=== PATIENT | male | born 1965 | race African-American/Black ===

== ENCOUNTER 2017-02-17 11:39 | Emergency (ER) | payer MEDICARE, OTHER ==
[~2017-02-17] VITALS: Ht 175.3 cm; Wt 104.3 kg
[~2017-02-17 11:39] MED LIST: DEPER5 PO; LORA1TAB PO; QUET400T PO
[2017-02-17] MEDS ORDERED: MAGNESIUM/ALUMINUM HYDROXIDE/SIMETHICONE 30ML UDC PO STA (12:56)
[2017-02-17] MEDS ORDERED: FAMOTIDINE 20MG/2ML VIAL IV STA (12:56)
[2017-02-17] MEDS ORDERED: ONDANSETRON HCL 4MG/2ML VIAL IV STA (12:56)
[2017-02-17] MEDS ORDERED: MORPHINE SULFATE 4 MG/ML CPJ (NOT FOR IM USE) IV STA (12:56)
[2017-02-17] MEDS ORDERED: SODIUM CHLORIDE 0.9% 1,000 ML IV ONE (12:56)
[2017-02-17 14:21] LABS: HEMATOCRIT. 48.4 % (42.0-52.0); HEMOGLOBIN. 16.3 g/dL (14.0-18.0); MEAN CORPUSCULAR HEMOGLOBIN 31.4 pg (28.0-32.0); MEAN CORPUSCULAR VOLUME 92.9 fL (80.0-94.0); MEAN PLATELET VOLUME 9.7 fl (7.4-10.4); PLATELET 145 x1000/uL (130-400); RED BLOOD CELL COUNT 5.21 mill/uL (4.7-6.1)
[2017-02-17 14:29] LABS: D-DIMER 0.37 mg/L FEU (<0.50); INR 1.1; PROTHROMBIN TIME 11.4 sec (9.4-11.6)
[2017-02-17 14:36] LABS: CARBON DIOXIDE 33 mEq/L (21-32); CHLORIDE 101 mEq/L (98-107); ETHANOL BLOOD < 10 mg/dL; TROPONIN I < 0.02 ng/mL (0.00-0.04)
[2017-02-17 14:43] LABS: PLATELET ESTIMATE NORMAL
[2017-02-17 15:52] VITALS: BP 146/81
== END 2017-02-17 15:57 | disposition home or self-care (01) ==
LOC: ER 13:51
DX: K29.70 Gastritis, unspecified, without bleeding (principal); R07.89 Other chest pain; F17.200 Nicotine dependence, unspecified, uncomplicated; Z85.46 Personal history of malignant neoplasm of prostate
CPT/HCPCS: 36415; 71010; 76700; 80053; 82962; 83690; 83880; 84484; 85025; 85379; 85610; 93005; 96361; 96374; 96375; 99285; G0482; J2270; J2405; J3490; J7030; Z7610

== ENCOUNTER 2017-02-19 00:59 | Observation (INO) | payer MEDICAID, MEDICARE ==
[~2017-02-19] VITALS: Ht 175.3 cm; Wt 103.9 kg
[2017-02-19] MEDS ORDERED: SODIUM CHLORIDE 0.9% 1,000 ML IV ONE (01:13)
[2017-02-19] MEDS ORDERED: MECLIZINE 25MG TABLET PO ONE (01:15)
[2017-02-19 02:23] LABS: HEMATOCRIT. 42.5 % (42.0-52.0); HEMOGLOBIN. 14.1 g/dL (14.0-18.0); MEAN CORPUSCULAR HEMOGLOBIN 31.1 pg (28.0-32.0); MEAN CORPUSCULAR VOLUME 93.4 fL (80.0-94.0); MEAN PLATELET VOLUME 9.8 fl (7.4-10.4); PLATELET 136 x1000/uL (130-400); RED BLOOD CELL COUNT 4.55 mill/uL (4.7-6.1); RED CELL DISTRIBUTION WIDTH 13.9 % (11.6-14.6)
[2017-02-19 02:28] LABS: INR 1.1; PROTHROMBIN TIME 11.5 sec (9.4-11.6)
[2017-02-19 02:38] LABS: CARBON DIOXIDE 26 mEq/L (21-32); CHLORIDE 102 mEq/L (98-107); ETHANOL BLOOD < 10 mg/dL; TROPONIN I 0.03 ng/mL (0.00-0.04)
[2017-02-19 07:20] LABS: PLATELET ESTIMATE NORMAL
[2017-02-19 09:45] VITALS: BP 132/91
[2017-02-19 09:53] VITALS: BP 132/91
[2017-02-19] MEDS ORDERED: DIVAL250 PO (10:11)
[2017-02-19] MEDS ORDERED: ENOXAPARIN 40MG/0.4ML SYR SUBCUT SCH (10:45)
[2017-02-19] MEDS ORDERED: DOCUSATE SODIUM 100MG CAPSULE PO PRN (10:45)
[2017-02-19] MEDS ORDERED: LORAZEPAM 2MG/ML CPJ IV PRN (10:45)
[2017-02-19 12:00] VITALS: BP 127/75
[2017-02-19] MEDS ORDERED: MVI, ADULT NO.1 10 ML, FOLIC ACID 1 MG, THIAMINE HCL 100 MG in SODIUM CHLORIDE 0.9% 1,0... IV ONE ×4 (13:00)
[2017-02-19] MEDS: DIVALPROEX SODIUM 500MG ER TABLET PO SCH ×2 (13:11→22:09)
[2017-02-19] MEDS: FAMOTIDINE 20MG TABLET PO SCH ×2 (13:11→22:10)
[2017-02-19] MEDS: ENOXAPARIN 30MG/0.3ML SYR SUBCUT SCH ×2 (13:11→22:10)
[2017-02-19] MEDS: LORAZEPAM 1MG TABLET PO SCH ×2 (13:12→17:46)
[2017-02-19] MEDS: PIPERACILLIN/TAZ 3.375G PREMIX 50 ML IV SCH ×2 (14:56→22:10)
[2017-02-19] MEDS: SODIUM CHLORIDE 0.9% INJ 3ML FLUSH IVF SCH ×2 (14:56→22:11)
[2017-02-19 16:00] VITALS: BP_SYST 110; BP_SYST 113; BP_SYST 116; BP_DIAS 68; BP_DIAS 71; BP_DIAS 78
[2017-02-19] MEDS ORDERED: SODIUM CHLORIDE 0.9% 1,000 ML IV SCH (16:00)
[2017-02-19 20:00] VITALS: BP 124/78
[2017-02-20] VITALS: BP 124/78
[2017-02-20 04:00] VITALS: BP 108/72
[2017-02-20] MEDS: PIPERACILLIN/TAZ 3.375G PREMIX 50 ML IV SCH (05:21)
[2017-02-20] MEDS: SODIUM CHLORIDE 0.9% INJ 3ML FLUSH IVF SCH (05:21)
[2017-02-20 06:39] LABS: BASOPHILS % 0.3 % (0.0-2.0); HEMATOCRIT. 39.3 % (42.0-52.0); LYMPHOCYTES % 14.3 % (20.0-50.0); MEAN CORPUSCULAR HEMOGLOBIN 31.1 pg (28.0-32.0); MEAN CORPUSCULAR VOLUME 93.7 fL (80.0-94.0); MEAN PLATELET VOLUME 10.1 fl (7.4-10.4); MONOCYTES % 13.9 % (2.0-8.0); NEUTROPHILS % 70.5 % (40.0-76.0); PLATELET 140 x1000/uL (130-400); RED CELL DISTRIBUTION WIDTH 13.7 % (11.6-14.6)
[2017-02-20] MEDS: FAMOTIDINE 20MG TABLET PO SCH (07:53)
[2017-02-20] MEDS: DIVALPROEX SODIUM 500MG ER TABLET PO SCH (07:54)
[2017-02-20] MEDS: LORAZEPAM 1MG TABLET PO SCH (07:54)
[2017-02-20] MEDS: ENOXAPARIN 30MG/0.3ML SYR SUBCUT SCH (07:56)
[2017-02-20 08:00] VITALS: BP 98/51
[2017-02-20] MEDS ORDERED: DIVALPROEX SODIUM 250MG ER TABLET PO SCH (09:00)
[2017-02-20 11:47] VITALS: BP 129/62
[2017-02-20 12:00] VITALS: BP 111/61
[2017-02-20] MEDS ORDERED: PIPERACILLIN/TAZ 3.375G PREMIX 50 ML IV SCH (18:00)
== END 2017-02-20 15:05 | disposition home or self-care (01) ==
LOC: ER 00:59 → 7WST 01:31 → INTOOBSV 01:31
PROVIDERS: ADMIT Internal Medicine; ATTEND Internal Medicine
DX: R55 Syncope and collapse (principal); F20.9 Schizophrenia, unspecified; F32.9 Major depressive disorder, single episode, unspecified; E86.0 Dehydration; D72.829 Elevated white blood cell count, unspecified
CPT/HCPCS: 36415; 70450; 70551; 71010; 80053; 82962; 83690; 83880; 84484; 85025; 85610; 93005; 95819; 96361; 96365; 96366; 96368; 96372; 96375; 97162; 99285; G0378; G0482; J1650; J2543; J3411; J3490; J7030; 96360; J8597

== ENCOUNTER 2019-04-28 13:55 | Emergency (ER) | payer MEDICAID, MEDICARE ==
[~2019-04-28] VITALS: Ht 172.7 cm; Wt 100.0 kg
[~2019-04-28 13:55] MED LIST changes: +DIVAL250 PO
[2019-04-28] MEDS ORDERED: KETOROLAC 60MG/2ML VIAL IM ONE (15:45)
[2019-04-28 16:04] VITALS: BP 140/89
[2019-04-28 16:16] LABS: BASOPHILS % 1.1 % (0.0-2.0); EOSINOPHILS % 4.2 % (0.0-5.0); HEMATOCRIT. 49.5 % (42.0-52.0); HEMOGLOBIN. 16.7 g/dL (14.0-18.0); LYMPHOCYTES % 27.2 % (20.0-50.0); MEAN CORPUSCULAR HEMOGLOBIN 31.3 pg (28.0-32.0); MEAN CORPUSCULAR VOLUME 92.7 fL (80.0-94.0); MEAN PLATELET VOLUME 9.8 fl (7.4-10.4); MONOCYTES % 9.7 % (2.0-8.0); NEUTROPHILS % 57.8 % (40.0-76.0); PLATELET 193 x1000/uL (130-400); RED BLOOD CELL COUNT 5.34 mill/uL (4.7-6.1); RED CELL DISTRIBUTION WIDTH 14.1 % (11.6-14.6)
[2019-04-28 16:16] LABS: CLARITY URINE CLEAR (CLEAR); COLOR URINE YELLOW (YELLOW); KETONES URINE 1+ (NEGATIVE); LEUKOCYTE ESTERASE URINE NEGATIVE (NEGATIVE); NITRITE URINE NEGATIVE (NEGATIVE); OCCULT BLOOD URINE NEGATIVE (NEGATIVE); PH URINE 5.5 (4.5-8.0); PROTEIN URINE NEGATIVE (NEGATIVE); SPECIFIC GRAVITY URINE 1.024 (1.005-1.030); UROBILINOGEN URINE 0.2 E.U./dL (0.2-1.0)
[2019-04-28 16:20] LABS: CHLORIDE 109 mEq/L (98-107)
[2019-04-28 17:47] LABS: CHLORIDE 106 mEq/L (98-107)
== END 2019-04-28 19:05 | disposition home or self-care (01) ==
LOC: ER 13:55
DX: M54.5 Low back pain (principal)
CPT/HCPCS: 36415; 72131; 80053; 81003; 85025; 96372; 99284; J1885

== ENCOUNTER 2021-09-15 19:54 | Emergency (ER) | payer MEDICARE ==
[~2021-09-15] VITALS: Ht 190.5 cm; Wt 127.0 kg
[2021-09-15] MEDS ORDERED: NITROGLYCERIN 0.4MG TABLET SL SL PRN ×2 (20:30→23:00)
[2021-09-15] MEDS ORDERED: ASPIRIN 81MG TABLET PO ONE (20:30)
[2021-09-15 21:31] LABS: HEMATOCRIT. 48.8 % (42.0-52.0); HEMOGLOBIN. 15.5 g/dL (14.0-18.0); MEAN CORPUSCULAR HEMOGLOBIN 28.5 pg (28.0-32.0); MEAN CORPUSCULAR VOLUME 90.1 fL (80.0-94.0); MEAN PLATELET VOLUME 10.2 fl (7.4-10.4); PLATELET 142 x1000/uL (130-400); RED BLOOD CELL COUNT 5.41 mill/uL (4.7-6.1); RED CELL DISTRIBUTION WIDTH 18.8 % (11.6-14.6)
[2021-09-15 21:36] LABS: CHLORIDE 102 mEq/L (98-107)
[2021-09-15] MEDS ORDERED: SODIUM CHLORIDE 0.9% 1000ML BAG (SEPSIS BOLUS) IV ONE (21:45)
[2021-09-15] MEDS ORDERED: CEFTRIAXONE 1 G PREMIX 50 ML IV ONE (21:45)
[2021-09-15] MEDS ORDERED: AZITHROMYCIN 500MG/250ML 250 ML IV ONE (21:45)
[2021-09-15 21:51] LABS: PLATELET ESTIMATE NORMAL
[2021-09-15] MEDS ORDERED: CEFTRIAXONE 1,000 MG in DEXTROSE 5% WATER 50 ML IV SCH (22:00)
[2021-09-15] MEDS ORDERED: ASPIRIN 81MG TABLET PO NR (22:27)
[2021-09-15] MEDS ORDERED: ONDANSETRON HCL 4MG/2ML INJ IV PRN (23:00)
[2021-09-15] MEDS ORDERED: DOCUSATE SODIUM 100MG CAPSULE PO PRN (23:00)
[2021-09-15] MEDS ORDERED: GUAIFENESIN 200MG/10ML SUGAR FREE UDC PO PRN (23:00)
[2021-09-15] MEDS ORDERED: ENOXAPARIN 40MG/0.4ML SYR SUBCUT SCH (23:00)
[2021-09-15] MEDS ORDERED: ACETAMINOPHEN 325MG TABLET PO PRN ×2 (23:00)
[2021-09-15] MEDS ORDERED: KETOROLAC 15MG/ML VIAL IV PRN (23:00)
[2021-09-15] MEDS ORDERED: AMLODIPINE 10MG TABLET PO SCH (23:00)
[2021-09-15] MEDS ORDERED: ZOLPIDEM TARTRATE 5MG TABLET PO PRN (23:00)
[2021-09-15] MEDS ORDERED: IPRATROPIUM/ALBUTEROL 0.5-3(2.5)MG/3ML NEB NEB PRN (23:00)
[2021-09-15] MEDS ORDERED: CLONIDINE 0.1MG TABLET PO PRN (23:00)
[2021-09-15] MEDS ORDERED: LORAZEPAM 0.5MG TABLET PO PRN (23:00)
[2021-09-15] MEDS ORDERED: MAGNESIUM/ALUMINUM HYDROXIDE/SIMETHICONE 30ML UDC PO PRN (23:00)
[2021-09-15] MEDS ORDERED: HALOPERIDOL LACTATE 5MG/ML VIAL IM PRN (23:08)
[2021-09-15 23:53] LABS: ETHANOL BLOOD < 10 mg/dL
[2021-09-15 23:56] LABS: LDL CHOLESTEROL 166 mg/dL (5-100); TOTAL IRON BINDING CAPACITY 455 ug/dL (250-450)
[2021-09-15 23:58] LABS: HDL CHOLESTEROL 48 mg/dL (40-59); T4 FREE 0.97 ng/dL (0.76-1.46)
[2021-09-16] MEDS ORDERED: IOHEXOL-350 100 ML BOTTLE ONE (00:31)
[2021-09-16 01:19] LABS: CLARITY URINE CLEAR (CLEAR); COLOR URINE YELLOW (YELLOW); KETONES URINE 1+ (NEGATIVE); LEUKOCYTE ESTERASE URINE NEGATIVE (NEGATIVE); NITRITE URINE NEGATIVE (NEGATIVE); OCCULT BLOOD URINE TRACE (NEGATIVE); PROTEIN URINE NEGATIVE (NEGATIVE); SPECIFIC GRAVITY URINE 1.054 (1.005-1.030); UROBILINOGEN URINE 0.2 E.U./dL (0.2-1.0)
[2021-09-16 01:31] LABS: *AMPHETAMINES SCREEN URINE NEGATIVE (NEGATIVE); *BARBITURATES SCREEN URINE NEGATIVE (NEGATIVE)
[2021-09-16 01:32] LABS: *BENZODIAZEPINES SCREEN URINE NEGATIVE (NEGATIVE); *COCAINE SCREEN URINE NEGATIVE (NEGATIVE); CANNABINOID URINE SCREEN NEGATIVE (NEGATIVE); METHADONE URINE SCREEN NEGATIVE (NEGATIVE); OPIATES URINE SCREEN NEGATIVE (NEGATIVE); PHENCYCLIDINE URINE SCREEN NEGATIVE (NEGATIVE)
[2021-09-16 02:52] LABS: VITAMIN B12 SERUM > 2000 pg/mL (211-911)
[2021-09-16 05:08] LABS: HEMATOCRIT. 44.1 % (42.0-52.0); HEMOGLOBIN. 14.4 g/dL (14.0-18.0); LYMPHOCYTES % 5.5 % (20.0-50.0); MEAN CORPUSCULAR VOLUME 88.8 fL (80.0-94.0); MONOCYTES % 6.7 % (2.0-8.0); NEUTROPHILS % 87.8 % (40.0-76.0); PLATELET 125 x1000/uL (130-400); RED BLOOD CELL COUNT 4.96 mill/uL (4.7-6.1); RED CELL DISTRIBUTION WIDTH 18.9 % (11.6-14.6)
[2021-09-16 05:15] LABS: CHLORIDE 101 mEq/L (98-107)
[2021-09-16 05:21] LABS: PHOSPHORUS 2.8 mg/dL (2.5-4.9)
[2021-09-16 06:00] VITALS: BP 167/105
[2021-09-16 06:38] LABS: CREATINE KINASE MB FRACTION 2.5 ng/mL (0.5-3.6)
[2021-09-16] MEDS ORDERED: DIVALPROEX SODIUM 250MG DR TABLET PO SCH (09:00)
[2021-09-16] MEDS ORDERED: ZINC SULFATE 220 MG ( 50 ) CAPSULE PO SCH (09:00)
[2021-09-16] MEDS ORDERED: ASCORBIC ACID 500 MG TABLET PO SCH (09:00)
[2021-09-16] MEDS ORDERED: ASPIRIN 325MG EC TABLET PO SCH (09:00)
[2021-09-16] MEDS ORDERED: FAMOTIDINE 20MG TABLET PO SCH (09:00)
[2021-09-16] MEDS ORDERED: CHOLECALCIFEROL (D3) 1000 UNIT TABLET PO SCH (09:00)
[2021-09-16] MEDS ORDERED: CEFTRIAXONE 1,000 MG in DEXTROSE 5% WATER 50 ML IV SCH (20:00)
[2021-09-16] MEDS ORDERED: AZITHROMYCIN 500 MG in DEXT 5% WATER 250 ML IV SCH (21:00)
== END 2021-09-16 10:44 | disposition left against medical advice (07) ==
LOC: ER 19:54
DX: J18.9 Pneumonia, unspecified organism (principal); R07.9 Chest pain, unspecified; A41.9 Sepsis, unspecified organism; F20.9 Schizophrenia, unspecified; F17.210 Nicotine dependence, cigarettes, uncomplicated; F41.9 Anxiety disorder, unspecified; I10 Essential (primary) hypertension; R05.9 Cough, unspecified; Z20.822 Contact with and (suspected) exposure to COVID-19; R91.8 Other nonspecific abnormal finding of lung field
CPT/HCPCS: 36415; 71045; 71275; 80053; 80061; 80305; 80320; 81003; 82550; 82553; 82607; 82746; 83036; 83540; 83550; 83605; 83735; 83880; 84100; 84145; 84439; 84443; 84484; 85025; 85379; 87040; 87086; 87426; 93005; 93970; 96365; 96367; 96372; 96375; 99291; J0456; J0696; J1650; J2405; J7030; J7060; Q9967; G0480